=== PATIENT | female | born 1970 | race Caucasian/White ===

== ENCOUNTER 2023-08-24 08:40 | Outpatient (CLI) | payer OTHER, SELFPAY | END 2023-08-24 08:41 | disposition home or self-care (01) | LOC: NFLDREF 09-07 08:55 | PROVIDERS: PCP Physician Assistant Medical; Referring Provider Physician Assistant Medical; Visit Provider Physician Assistant Medical | DX: E03.9 Hypothyroidism, unspecified (principal); E11.9 Type 2 diabetes mellitus without complications | CPT/HCPCS: 80053; 80061; 84443 ==

== ENCOUNTER 2024-08-18 15:11 | Outpatient (CLI) | payer OTHER, SELFPAY | END 2024-08-18 15:12 | disposition home or self-care (01) | LOC: NFLDREF 08-19 03:40 | PROVIDERS: PCP Physician Assistant Medical; Referring Provider Physician Assistant Medical; Visit Provider Physician Assistant Medical | DX: E11.9 Type 2 diabetes mellitus without complications (principal); E03.9 Hypothyroidism, unspecified; Z79.85 Long-term (current) use of injectable non-insulin antidiabetic drugs; Z13.220 Encounter for screening for lipoid disorders | CPT/HCPCS: 80053; 80061; 82043; 82570; 84443 ==

== ENCOUNTER 2025-02-24 13:47 | Outpatient (CLI) | payer OTHER, SELFPAY | END 2025-02-24 13:48 | disposition home or self-care (01) | LOC: LKVREF 13:48 | PROVIDERS: PCP Physician Assistant Medical | DX: R39.15 Urgency of urination (principal); N39.0 Urinary tract infection, site not specified | CPT/HCPCS: 87086 ==